=== PATIENT | male | born 1980 | race Caucasian/White ===

== ENCOUNTER 2017-08-24 17:48 | Emergency (ER) | payer MEDICAID ==
[~2017-08-24] VITALS: Ht 157.5 cm; Wt 84.0 kg
[2017-08-24 17:55] VITALS: Ht 157.5 cm; Wt 84.0 kg
[2017-08-24] MEDS ORDERED: NALOXONE (0.4 MG/ML) INJ IV STA ×2 (18:16→18:29)
[2017-08-24] MEDS ORDERED: LORAZEPAM 2 MG INJ IV STA (18:29)
--- NOTE | 2017-08-24 21:15 | ERD ---
ER Documentation Chief Complaint Date/Time DATE: 08/24/17 TIME: 21:12 Chief Complaint Complains of a possible Cocaine drug use HPI This is a 37-year-old male who has a history of drug abuse by smoking heroin. The patient states he has been clean for several months now we decided to try intravenous heroin. The patient was found by the girlfriend when she came to pick him up just prior to arrival the patient seemed very sleepy. He told her what he did so he was brought here. No shortness of breath, no chest pain no vomiting no syncope no dizziness no apnea ROS All systems reviewed and are negative except as per history of present illness. Allergies Allergies: Coded Allergies: No Known Allergy (Unverified , 08/24/17) PMhx/Soc Medical and Surgical Hx: Unable to obtain Hx Alcohol Use: Yes Hx Substance Use: Yes Hx Tobacco Use: Yes Smoking Status: Never smoker FmHx Family History: No coronary disease Physical Exam Vitals Vital Signs Date Time Temp Pulse Resp B/P Pulse Ox O2 Delivery O2 Flow Rate FiO2 08/24/17 17:55 98.6 113 20 146/91 98 Physical Exam Const: Well-developed, well-nourished Head: Atraumatic, normocephalic Eyes: Normal Conjunctiva, PERRLA, EOMI, normal sclera, no nystagmus ENT: Normal External Ears, Nose and Mouth, moist mucus membranes. Neck: Full range of motion. No meningismus, no lymphadenopathy. Resp: Clear to auscultation bilaterally, no wheezing, rhonchi, rales Cardio: Regular rate and rhythm, no murmurs, S1 S2 present Abd: Soft, non tender x 4, non distended. Normal bowel sounds, no guarding or rebound, no pulsitile abdominal masses or bruits Skin: No petechiae or rashes, no ecchymosis , no maculopapular rash Back: No midline or flank tenderness Ext: No cyanosis, or edema, FROM x 4, normal inspection, neurovascularly intact x 4 Neur: Awake and alert, STR 5/5 x 4, sensation intact x 4, no focal findings, cerebellum intact, somewhat lethargic but will follow commands Psych: Normal Mood and Affect Results 24 hrs Current Medications Medications (Trade) Dose Ordered Sig/Tyrell Route PRN Reason Start Time Stop Time Status Last Admin Dose Admin Naloxone HCl (Narcan) 0.4 mg ONCE STAT IV 08/24/17 18:16 08/24/17 18:18 DC 08/24/17 18:30 Lorazepam (Ativan) 1 mg ONCE STAT IV 08/24/17 18:29 08/24/17 18:31 DC 08/24/17 18:35 Naloxone HCl (Narcan) 0.4 mg ONCE STAT IV 08/24/17 18:29 08/24/17 18:31 DC 08/24/17 18:35 Procedures/MDM Patient was given 2 rounds of Narcan of 0.4 mg IV, His mental status improved he became anxious. He was given some Ativan. Patient then slept for several hours in the ER. Currently at 2115 the patient is awake alert oriented says he feels much better had a discussion with him about stop using drugs and how life-threatening they can be he said he will Departure Diagnosis: Primary Impression: Drug overdose Encounter type: initial encounter Injury intent: accidental or unintentional Qualified Code: T50.901A - Accidental drug overdose, initial encounter Condition: Stable Patient Instructions: Drug Abuse Referrals: NO PRIMARY,CARE PHYSICIAN (PCP) ANDREW MCGARRY DO Aug 24, 2017 21:15
[2017-08-24 21:17] VITALS: BP 118/69; PULSE 89; RESP 18
== END 2017-08-24 21:00 | disposition home or self-care (01) ==
LOC: EDBD 17:48 → E/R 17:48
DX: T40.5X1A Poisoning by cocaine, accidental (unintentional), initial encounter (principal); R40.2242 Coma scale, best verbal response, confused conversation, at arrival to emergency department; R40.2122 Coma scale, eyes open, to pain, at arrival to emergency department; R40.2352 Coma scale, best motor response, localizes pain, at arrival to emergency department; Z87.891 Personal history of nicotine dependence
CPT/HCPCS: 96374; 96375; J2060; J2310; Z7502

== ENCOUNTER 2017-11-10 06:34 | Emergency (ER) | END 2017-11-10 10:48 | disposition left against medical advice (07) ==

== ENCOUNTER 2017-11-11 03:55 | Emergency (ER) | END 2017-11-11 08:07 | disposition left against medical advice (07) ==